=== PATIENT | female | born 1945 | race Caucasian/White ===

== ENCOUNTER 2024-04-29 16:41 | Emergency (ER) | payer MEDICARE, OTHER ==
[2024-04-29] MEDS ORDERED: Lactated Ringers 1,000 ML IV ONE ×2 (16:50→19:22)
[2024-04-29] MEDS ORDERED: Prochlorperazine 10 MG/2 ML SDV ONE (17:01)
[2024-04-29] MEDS: Iopamidol 612 MG/ML 100 ML Bottle ONE (17:15)
[2024-04-29 17:28] LABS: BASOPHILS ABSOLUTE AUTO 0.03 K/uL (0.00-0.20); BASOPHILS PERCENT AUTO 0.2 % (0.0-2.0); EOSINOPHILS ABSOLUTE AUTO 0.13 K/uL (0.00-0.50); EOSINOPHILS PERCENT AUTO 0.9 % (0.0-5.0); HEMATOCRIT 26.6 % (34.0-46.0); HEMOGLOBIN 8.6 g/dL (11.7-15.5); LYMPHOCYTES ABSOLUTE AUTO 1.58 K/uL (0.50-3.50); LYMPHOCYTES PERCENT AUTO 10.8 % (10.0-50.0); MEAN CORPUSCULAR HEMOGLOBIN 31.9 pg (28.2-33.3); MEAN CORPUSCULAR HGB CONC 32.3 g/dL (31.7-36.0); MEAN CORPUSCULAR VOLUME 98.5 fL (84.0-98.0); MONOCYTES ABSOLUTE AUTO 1.24 K/uL (0.00-1.00); MONOCYTES PERCENT AUTO 8.4 % (2.0-14.0); NEUTROPHILS PERCENT AUTO 79.7 % (45.0-80.0); PLATELET COUNT,PLT 149 K/uL (150-350); RED CELL DISTRIBUTION WIDTH 13.4 % (11.2-14.1); WHITE BLOOD CELL COUNT,WBC 14.7 K/uL (4.0-10.2)
[2024-04-29] MEDS: Prochlorperazine 10 MG/2 ML SDV IV ONE (17:49)
[2024-04-29 17:51] LABS: ALANINE AMINOTRANSFERASE,ALT 17 U/L (12-78); ALBUMIN 2.7 g/dL (3.4-5.0); ALKALINE PHOSPHATASE 79 IU/L (46-116); ANION GAP 11.1 meq/L (7-15); ASPARTATE AMNIOTRANSFERASE,AST 17 U/L (15-37); BILIRUBIN TOTAL 0.4 mg/dL (0.2-1.0); BLOOD UREA NITROGEN,BUN 31 mg/dL (7-18); CALCIUM 7.9 mg/dL (8.5-10.1); CARBON DIOXIDE,CO2 22.9 mmol/L (21.0-32.0); CHLORIDE,CL 104 mmol/L (98-107); CREATININE 1.34 mg/dL (0.51-1.17); ESTIMATED GFR 40 mL/min (>=60); GLUCOSE RANDOM 141 mg/dL (70-99); POTASSIUM,K 3.8 mmol/L (3.5-5.1); PROTEIN TOTAL,TP 5.2 g/dL (6.4-8.2); SODIUM,NA 138 mmol/L (136-145)
[2024-04-29 17:58] LABS: INR 1.1 (0.9-1.1); PROTHROMBIN TIME 11.2 SEC (9.0-11.1)
== END 2024-04-29 18:00 ==
LOC: LL.ED 16:41
DX: I95.9 Hypotension, unspecified (principal); K68.3 Retroperitoneal hematoma; Z88.5 Allergy status to narcotic agent; Z88.8 Allergy status to other drugs, medicaments and biological substances; Z79.82 Long term (current) use of aspirin; Z79.899 Other long term (current) drug therapy
CPT/HCPCS: 36415; 70450; 71260; 72125; 74177; 80053; 84484; 85025; 85610; 93005; 93010; 96361; 96374; 96376; 99284; 99285-25; J0780; J7120; Q9967